=== PATIENT | male | born 1985 | race Caucasian/White ===

== ENCOUNTER 2021-01-27 10:58 | Emergency (ER) | payer OTHER ==
[~2021-01-27] VITALS: Ht 175.3 cm; Wt 77.2 kg
--- NOTE | 2021-01-27 12:14 | NUR ---
BOX ICER: PT TO ROOM FROM [facility]AUDH[facility]
--- NOTE | 2021-01-27 12:34 | NUR ---
PT HAS CO HEAVY METAL POISENING OF THALIUM AND POSSIBLY LEAD. CONFIRMED BY LAB. UNABLE TO SLEEP FOR 2 MONTHS. PT BED WITH STEADY GAIT. PROVIDED UA SAMPLE. POSTIONED TO BED FOR COMFORT. ATTACHED TO MONITORS. VSS. VILA.
[2021-01-27 13:34] LABS: MEAN CORPUSCULAR HEMOGLOBIN 31.9 pg (27.5-34.5); MEAN CORPUSCULAR HGB CONC 34.5 g/dL (33.2-36.2); MEAN PLATELET VOLUME 9.2 fL (7.4-10.4); PLATELET COUNT 187 x10^3/uL (130-400); RED BLOOD COUNT 4.75 x10^6/uL (4.38-5.82); RED CELL DISTRIBUTION WIDTH 13.4 % (9.4-14.8)
[2021-01-27 13:42] LABS: ALANINE AMINOTRANSFERASE 45 U/L (12-78); ANION GAP 6 mmol/L (5-15); CALCIUM 9.1 mg/dL (8.5-10.1); CHLORIDE 110 mmol/L (98-107); CREATININE 1.13 mg/dL (0.7-1.3)
[2021-01-27 13:44] LABS: ALKALINE PHOSPHATASE 92 U/L (45-117); BILIRUBIN,TOTAL 1.4 mg/dL (0.2-1.0); TOTAL PROTEIN 7.3 g/dL (6.4-8.2)
[2021-01-27 14:05] LABS: MD YES
[2021-01-27 14:07] LABS: BAND#(MANUAL) 0.37 x10^3/uL; BANDS%(MANUAL) 3 % (0-7); SEG#(MANUAL) 8.36 x10^3/uL (1.8-6.8); SEGS% (MANUAL) 68 % (42-75)
[2021-01-27 14:09] LABS: METAMYELOCYTES# (MANUAL) 0.25 x10^3/uL (0-0); METAMYELOCYTES% (MANUAL) 2 % (0-1); MONOS#(MANUAL) 0.49 x10^3/uL (0.3-2.7); MONOS% (MANUAL) 4 % (2-9); REACTIVE LYMPHS # (MANUAL) 0.25 x10^3/uL (0-0); REACTIVE LYMPHS % (MANUAL) 2 % (0-0)
[2021-01-27 14:10] LABS: LYMPH#(MANUAL) 2.46 x10^3/uL (1-3.4); LYMPHS% (MANUAL) 20 % (22-44); MYELOCYTES# (MANUAL) 0.12 x10^3/uL (0-0); MYELOCYTES% (MANUAL) 1 % (0-0)
[2021-01-27 14:11] LABS: <PLATELET ESTIMATE> ADEQUATE; <PLT MORPHOLOGY> NORMAL PLT MORPH; <RBC MORPHOLOGY> NORMAL
--- NOTE | 2021-01-27 14:23 | NUR ---
PT RESTING WITH FAMILY FRIEND AT BEDSIDE. YOANNA.
[2021-01-27 15:42] VITALS: BP 120/77
--- NOTE | 2021-01-27 15:56 | NUR ---
Patient given discharge instructions and they have confirmed that they understand the instructions. Patient ambulatory with steady gait.
== END 2021-01-27 15:57 | disposition home or self-care (01) ==
LOC: ED 11:44
DX: G47.00 Insomnia, unspecified (principal)
CPT/HCPCS: 36415; 80053; 83690; 85025; 99285

== ENCOUNTER 2021-02-06 15:29 | Emergency (ER) | payer OTHER ==
[~2021-02-06] VITALS: Ht 175.3 cm; Wt 73.6 kg
[2021-02-06] MEDS ORDERED: SODIUM CHLORIDE FLUSH 10ML SYR IVF ONE (16:00)
[2021-02-06] MEDS ORDERED: FAMOTIDINE 20 MG/2 ML IVPush ONE (16:00)
[2021-02-06] MEDS ORDERED: MAALOX/HYOSCYAMINE/LIDOCAINE 45 ML BTL PO ONE (16:00)
[2021-02-06 16:28] LABS: BASOPHILS % (AUTO) 1 % (0-1); EOSINOPHILS % (AUTO) 0 % (1-7); LYMPHOCYTES % (AUTO) 21 % (22-44); MEAN CORPUSCULAR HEMOGLOBIN 32.2 pg (27.5-34.5); MEAN CORPUSCULAR HGB CONC 34.7 g/dL (33.2-36.2); MEAN PLATELET VOLUME 8.8 fL (7.4-10.4); MONOCYTES % (AUTO) 8 % (2-9); NEUTROPHILS % (AUTO) 70 % (42-75); PLATELET COUNT 213 x10^3/uL (130-400); RED BLOOD COUNT 4.64 x10^6/uL (4.38-5.82); RED CELL DISTRIBUTION WIDTH 12.8 % (9.4-14.8)
[2021-02-06 16:30] LABS: MD NO
[2021-02-06 16:38] LABS: ALANINE AMINOTRANSFERASE 40 U/L (12-78); ALBUMIN 3.9 g/dL (3.4-5.0); ANION GAP 8 mmol/L (5-15); CALCIUM 9.1 mg/dL (8.5-10.1); CHLORIDE 110 mmol/L (98-107)
[2021-02-06 16:41] LABS: ALKALINE PHOSPHATASE 88 U/L (45-117); BILIRUBIN,TOTAL 2.9 mg/dL (0.2-1.0); TOTAL PROTEIN 7.3 g/dL (6.4-8.2)
--- NOTE | 2021-02-06 18:12 | NUR ---
nurse first aid: pt from lobby to room 25
--- NOTE | 2021-02-06 18:48 | NUR ---
PT STATES HAD AND UGI ENDOSCOPY WITH BIOPSY, STATES HAS HAD EPIGASTIC PAIN THE LAST FEW WEEKS FROM NOVEMBER STARTED BELCHING, DECEMBER 01 HAD QUITE BIT OF ALCOHOL THROBBING WENT AFTER THAT. PT STATES LOST 30LBS SINCE SEPTEMBER.
[2021-02-06] MEDS ORDERED: MAALOX/HYOSCYAMINE/LIDOCAINE 45 ML BTL ONE (18:55)
--- NOTE | 2021-02-06 18:57 | NUR ---
BILATERAL ARM WEAKNESS STARTED DECEMBER 01 ESPECIALLY IN THE [place]. PAIN IS INBETWEEN THE "NAVAL AND THE STERNUM" PT RESTING IN GURNEY BOTH RAILS X2 CALL REMOTE WITHIN REACH. VSS.
--- NOTE | 2021-02-06 19:11 | NUR ---
REPORT GIVEN TO GASTON DAS
[2021-02-06] MEDS ORDERED: LORazepam 1MG TABLET PO ONE (19:30)
[2021-02-06] MEDS ORDERED: LORazepam 1MG TABLET ONE (19:33)
[2021-02-06 19:36] VITALS: BP 122/88
== END 2021-02-06 19:54 | disposition home or self-care (01) ==
LOC: ED 18:39
DX: K29.50 Unspecified chronic gastritis without bleeding (principal); G47.00 Insomnia, unspecified
CPT/HCPCS: 36415; 76700; 80053; 83690; 85025; 99284